=== PATIENT | female | born 2000 | race Hispanic/Latino ===

== ENCOUNTER 2022-04-14 09:23 | Outpatient (CLI) | payer OTHER | END 2022-04-14 09:24 | disposition home or self-care (01) | LOC: CSHULT 09:23 | PROVIDERS: ATTEND Family Medicine | DX: Z34.02 Encounter for supervision of normal first pregnancy, second trimester (principal); Z3A.21 21 weeks gestation of pregnancy | CPT/HCPCS: 76805 ==

== ENCOUNTER 2025-08-22 15:04 | Outpatient (CLI) | payer BC | END 2025-08-22 15:05 | disposition home or self-care (01) | LOC: CSHULT 15:04 | PROVIDERS: ATTEND Internal Medicine Gastroenterology | DX: R79.89 Other specified abnormal findings of blood chemistry (principal); R19.8 Other specified symptoms and signs involving the digestive system and abdomen; R10.13 Epigastric pain; K76.0 Fatty (change of) liver, not elsewhere classified | CPT/HCPCS: 76705 ==